=== PATIENT | female | born 1985 ===

== ENCOUNTER 2016-12-14 14:26 | Emergency (ER) | payer OTHER, SELFPAY ==
[2016-12-14 14:43] VITALS: BP 106/73; PULSE 66; RESP 16; TEMP 98; O2SAT 100
[2016-12-14 15:52] LABS: BASO % 0.3 % (0.0-2.0); EOS # 0.1 K/uL (0.0-0.7); EOS % 0.7 % (0.0-4.0); HEMOGLOBIN 12.7 g/dL (12.0-16.0); LYMPH # 2.7 K/uL (1.0-4.3); LYMPH % 25.5 % (20.0-40.0); MEAN CELL VOLUME 81.7 fl (81.0-99.0); MEAN CORPUSCULAR HEMOGLOBIN 26.5 pg (27.0-31.0); MEAN CORPUSCULAR HGB CONC 32.5 g/dL (33.0-37.0); MEAN PLATELET VOLUME 7.6 fl (7.2-11.7); MONO # 0.8 K/uL (0.0-0.8); MONO % 7.9 % (0.0-10.0); NEUT # 6.9 K/uL (1.8-7.0); NEUT % 65.6 % (50.0-75.0); RBC 4.79 Mil/uL (3.80-5.20); RED CELL DISTRIBUTION WIDTH 13.5 % (11.5-14.5); WHITE BLOOD COUNT 10.5 K/uL (4.8-10.8)
--- NOTE | 2016-12-14 15:55 | ED PDOC ---
HPI: Female Pain Time Seen by Provider: 12/14/16 15:05 Chief Complaint (Nursing): Female Genitourinary Chief Complaint (Provider): abdominal pain History Per: Patient History/Exam Limitations: no limitations Onset/Duration Of Symptoms: Hrs (10), Persistent Current Symptoms Are (Timing): Still Present Pain Scale Rating Of: 7 Quality Of Discomfort: Unable To Describe, "Pain" Associated Symptoms: denies: Fever, Chills, Nausea, Vomiting, Diarrhea, Loss Of Appetite, Constipation Alleviating Factors: None Additional History Per: Patient Additional Complaint(s): 31 year old female with abdominal pain since 6:00AM that woke her up, initially 10/10 pain upon awakening. Pain is now 7/10 in severity, she is unable to describe the pain, initially it was RLQ now is suprapubic. She is currently having vaginal bleeding, like menses. Endorses hematuria, no dysuria, urgency, frequency. LMP 11/01/16. Not using contraception or barrier protection. She did home test 3 days ago but it was 'not that positive.' Her youngest child is 7 months old. PMD: Zoe Raphael. Last Menstral Period: 11/01/16 Past Medical History Vital Signs: Last Vital Signs Temp 98.0 F 12/14/16 14:40 Pulse 66 12/14/16 14:40 Resp 16 12/14/16 14:40 BP 106/73 12/14/16 14:40 Pulse Ox 100 12/14/16 14:40 - Family History Family History: States: Unknown Family Hx - Home Medications Home Medications: Ambulatory Orders Medication Instructions Recorded Vit No.126/Iron/Folic 1 tab PO DAILY 05/01/16 [Classic Tablet] Ibuprofen [Motrin Tab] 600 mg PO Q6 PRN #30 tab 05/03/16 - Allergies Allergies/Adverse Reactions: Allergies Allergy/AdvReac Type Severity Reaction Status Date / Time No Known Allergies Allergy Verified 11/27/15 06:33 Review of Systems Constitutional: Negative for: Fever, Chills, Sweats Eyes: Negative for: Pain, Vision Change Cardiovascular: Negative for: Chest Pain, Palpitations Respiratory: Negative for: Cough, Shortness of Breath Gastrointestinal: Positive for: Abdominal Pain (rlq now suprapubic). Negative for: Nausea, Vomiting Genitourinary Female: Positive for: Vaginal Bleeding, Pelvic Pain. Negative for : Dysuria, Frequency Musculoskeletal: Negative for: Back Pain Physical Exam - Reviewed Vital Signs Reviewed: Yes - Physical Exam Appears: Positive for: Uncomfortable Skin: Positive for: Warm, Dry Eye Exam: Positive for: Normal appearance Cardiovascular/Chest: Positive for: Regular Rate, Rhythm. Negative for: Bradycardia, Tachycardia Respiratory: Positive for: Normal Breath Sounds. Negative for: Rales, Rhonchi, Wheezing Gastrointestinal/Abdominal: Positive for: Soft, Tenderness (suprapubic). Negative for: Organomegaly, Distended, Guarding, Rebound Pelvic Exam: Positive for: External Exam Normal, Blood (moderate amount of blood in vaginal vault, +clots, possible POC) Back: Negative for: L CVA Tenderness, R CVA Tenderness Rectal: Positive for: Deferred Extremity: Negative for: Tenderness, Pedal Edema Lymphatic: Positive for: Deferred Neurologic/Psych: Positive for: Alert, vault keeper II-XII, Oriented. Negative for: Motor/Sensory Deficits - Laboratory Results Result Diagrams: 12/14/16 11:20 12/14/16 11:20 Urine POC: Positive - ECG O2 Sat by Pulse Oximetry: 100 - Progress ED Course And Treament: likely spontaneous , rule out ectopic * cbc * cmp * urine preg + * quantitative beta hcg * urine dip * transvaginal u/s Case d/w Dr. Torres CBC WNL CMP WNL pending quantitative hcg, transvaginal u/s 1700: tv u/s FINDINGS: The uterus measures 8.5 x 4.8 x 5.5 cm. There is no uterine mass. The endometrium measures 11 mm in width. There is no intrauterine gestation identified. There is no endometrial fluid. There is an incidental small cervical nabothian cyst. The right ovary measures 2.5 x 1.7 x 3.1 cm and the left ovary measures 2.3 x 1.2 x 2.6 cm. Normal flow is demonstrated in both ovaries. There are no adnexal masses appreciated. IMPRESSION: No intrauterine gestation demonstrated. The possibility of ectopic cannot be excluded on the basis of this examination. Followup with serial beta HCG is advised. . 17:13: quant beta hc will d/w Dr. Torres Disposition - Clinical Impression Clinical Impression: Spontaneous miscarriage - Disposition [facility] Disposition Time: 18:00 Condition: STABLE Additional Instructions: Return to ER for any worse or new symptoms. Followup with OB in 5-7 days for re -evaluation, or return to ER. Instructions: Spontaneous Miscarriage (ED) Forms: [facility] (Hebrew) Print Language: IRISH
[2016-12-14 16:03] LABS: ALB/GLOB RATIO 1.5 (1.0-2.1); ALBUMIN 4.3 g/dL (3.5-5.0); ALT/SGPT 31 U/L (9-52); AST/SGOT 19 U/L (14-36); BLOOD UREA NITROGEN 11 mg/dl (7-17); CALCIUM 8.8 mg/dL (8.4-10.2); GFR AFRICAN-AMERICAN > 60; GFR NON-AFRICAN AMERICAN > 60
--- NOTE | 2016-12-14 16:49 | US ---
PROCEDURE: Pelvic ultrasound HISTORY: pelvic pain, ro ectopic COMPARISON: Not available TECHNIQUE: Transvaginal FINDINGS: The uterus measures 8.5 x 4.8 x 5.5 cm. There is no uterine mass. The endometrium measures 11 mm in width. There is no intrauterine gestation identified. There is no endometrial fluid. There is an incidental small cervical nabothian cyst. The right ovary measures 2.5 x 1.7 x 3.1 cm and the left ovary measures 2.3 x 1.2 x 2.6 cm. Normal flow is demonstrated in both ovaries. There are no adnexal masses appreciated. IMPRESSION: No intrauterine gestation demonstrated. The possibility of ectopic cannot be excluded on the basis of this examination. Followup with serial beta HCG is advised. .
== END 2016-12-14 18:21 | disposition home or self-care (01) ==
LOC: H.ER 14:26
DX: O03.9 Complete or unspecified spontaneous abortion without complication (principal)

== ENCOUNTER 2018-01-27 21:18 | Emergency (ER) | payer SELFPAY ==
[2018-01-27 21:25] VITALS: BP 131/77; PULSE 72; RESP 18; TEMP 97.9; O2SAT 100
--- NOTE | 2018-01-27 21:40 | ED PDOC ---
HPI: Skin/Bite Injury Time Seen by Provider: 01/27/18 21:30 Chief Complaint (Nursing): Abnormal Skin Integrity Chief Complaint (Provider): Abnormal Skin Integrity History Per: Patient History/Exam Limitations: no limitations Onset/Duration Of Symptoms: Days (x 1) Current Symptoms Are (Timing): Still Present Location Of Injury: Right: Hand Quality Of Symptoms: Painful, Itching Additional Complaint(s): 32 year old female presents to the Ed with a rash on the dorsum of her right hand for the last month. Patient attempted to use her daughter's skin medication that she does not know the name of causing the rash to worsen and the skin to crack. Offers no other medical complaints. PMD: none provided Past Medical History Reviewed: Historical Data, Nursing Documentation, Vital Signs Vital Signs: Last Vital Signs Temp 97.9 F 01/27/18 21:22 Pulse 72 01/27/18 21:22 Resp 18 01/27/18 21:22 BP 131/77 01/27/18 21:22 Pulse Ox 100 01/27/18 21:43 - Medical History PMH: No Chronic Diseases - Surgical History Surgical History: No Surg Hx - Family History Family History: States: Unknown Family Hx - Home Medications Home Medications: Ambulatory Orders Medication Instructions Recorded Vit No.126/Iron/Folic 1 tab PO DAILY 05/01/16 [Classic Tablet] Ibuprofen [Motrin Tab] 600 mg PO Q6 PRN #30 tab 05/03/16 Terbinafine HCl [Lamisil At] 0.5 gm TP BID #30 cream..g. 01/27/18 - Allergies Allergies/Adverse Reactions: Allergies Allergy/AdvReac Type Severity Reaction Status Date / Time No Known Allergies Allergy Verified 11/27/15 06:33 Review of Systems ROS Statement: Except As Marked, All Systems Reviewed And Found Negative Skin: Positive for: Rash (to dorsum of right hand) Physical Exam - Reviewed Nursing Documentation Reviewed: Yes Vital Signs Reviewed: Yes - Physical Exam Appears: Positive for: Non-toxic, No Acute Distress Head Exam: Positive for: ATRAUMATIC, NORMAL INSPECTION, NORMOCEPHALIC Skin: Positive for: Dry, Rash (circular region of thickened, hyper pigmented skin approximately 5 cms in diameter; mild cracking of skin noted; no erythma or purulent discharge) Eye Exam: Positive for: EOMI, Normal appearance, PERRL Neck: Positive for: Normal, Painless ROM, Supple Cardiovascular/Chest: Positive for: Regular Rate, Rhythm. Negative for: Murmur Respiratory: Positive for: Normal Breath Sounds. Negative for: Wheezing, Respiratory Distress Gastrointestinal/Abdominal: Positive for: Normal Exam, Soft. Negative for: Tenderness Extremity: Positive for: Normal ROM. Negative for: Deformity Neurologic/Psych: Positive for: Alert, Oriented (x 3). Negative for: Motor/ Sensory Deficits - ECG O2 Sat by Pulse Oximetry: 100 (RA) Pulse Ox Interpretation: Normal Medical Decision Making Medical Decision Makin:40 --Patient will be discharged with anti fungal cream and was advised on proper care. Return precautions provided. Scribe Attestation: Documented by Ana M Crockett, acting as a scribe for Elina Malagno PA-C Provider Scribe Attestation: All medical record entries made by the Scribe were at my direction and personally dictated by me. I have reviewed the chart and agree that the record accurately reflects my personal performance of the history, physical exam, medical decision making, and the department course for this patient. I have also personally directed, reviewed, and agree with the discharge instructions and disposition. Disposition - Clinical Impression Clinical Impression: Tinea corporis - Patient ED Disposition Is Patient to be Admitted: No - Disposition Disposition: Routine/Home Disposition Time: 21:52 Condition: FAIR Prescriptions: Terbinafine HCl [Lamisil At] 0.5 gm TP BID #30 cream..g. Instructions: Ringworm (DC) Print Language: [place]
== END 2018-01-27 22:04 | disposition home or self-care (01) ==
LOC: H.ER 21:18
DX: B35.4 Tinea corporis (principal)

== ENCOUNTER 2018-02-22 17:08 | Emergency (ER) | payer OTHER ==
[2018-02-22 18:46] VITALS: BP 117/70; PULSE 68; RESP 16; TEMP 98; O2SAT 98
--- NOTE | 2018-02-22 19:46 | ED PDOC ---
HPI: Skin/Bite Injury Chief Complaint (Provider): Abnormal Skin Integrity History Per: Student Life Coordinator History/Exam Limitations: language barrier (nigerian) Current Symptoms Are (Timing): Still Present Additional Complaint(s): 33 year old female arrives to ED with a complaint of itchy and burning rash to her right hand for the last 2 months. Patient was given an anti-fungal in ED on 01/27/18 and a secondary anti-fungal at a pharmacy when the first medication did not help. She reports no worsening of symptoms but also has improvemnts after use of both medications. Otherwise, she denies any fever or chills. PMD: none provided <Arleen Valles - Last Filed: 02/22/18 20:01> <Santhosh Waddell - Last Filed: 02/23/18 21:30> Time Seen by Provider: 02/22/18 19:08 Chief Complaint (Nursing): Abnormal Skin Integrity Past Medical History Reviewed: Historical Data, Nursing Documentation, Vital Signs Vital Signs: Last Vital Signs Temp 98.0 F 02/22/18 18:43 Pulse 68 02/22/18 18:43 Resp 16 02/22/18 18:43 BP 117/70 02/22/18 18:43 Pulse Ox 98 02/22/18 18:43 - Medical History PMH: No Chronic Diseases - Family History Family History: States: Unknown Family Hx <Arleen Valles - Last Filed: 02/22/18 20:01> Vital Signs: Last Vital Signs Temp 98.0 F 02/22/18 18:43 Pulse 68 02/22/18 18:43 Resp 16 02/22/18 18:43 BP 117/70 02/22/18 18:43 Pulse Ox 98 02/22/18 20:02 <Santhosh Waddell - Last Filed: 02/23/18 21:30> - Home Medications Home Medications: Ambulatory Orders Medication Instructions Recorded RX: Vit No.126/Iron/Folic 1 tab PO DAILY 05/01/16 [Classic Tablet] RX: Ibuprofen [Motrin Tab] 600 mg PO Q6 PRN #30 tab 05/03/16 Terbinafine HCl [Lamisil At] 0.5 gm TP BID #30 cream..g. 01/27/18 - Allergies Allergies/Adverse Reactions: Allergies Allergy/AdvReac Type Severity Reaction Status Date / Time No Known Allergies Allergy Verified 02/22/18 18:43 Review of Systems ROS Statement: Except As Marked, All Systems Reviewed And Found Negative Constitutional: Negative for: Fever, Chills Skin: Positive for: Rash (right hand itchiness) <HaiGiovanyArleen Deangelo - Last Filed: 02/22/18 20:01> Physical Exam - Reviewed Nursing Documentation Reviewed: Yes Vital Signs Reviewed: Yes - Physical Exam Appears: Positive for: Non-toxic, No Acute Distress Skin: Positive for: Rash (large circular area of peripheral scaling; (-) purulence, (-) induration, or (-) fluctuance) Neurologic/Psych: Positive for: Alert, Oriented. Negative for: Motor/Sensory Deficits <HaiGiovanyArleen Deangelo - Last Filed: 02/22/18 20:01> - ECG O2 Sat by Pulse Oximetry: 98 (RA) Pulse Ox Interpretation: Normal <HaiArleen S - Last Filed: 02/22/18 20:01> Medical Decision Making Medical Decision Making: Time: 1932 Initial Plan: * Benadryl 50mg PO Time: 1945 --Rash is fungal in appearance but not responding to (2) anitfungal treatments. However, there is no evidence of super infection and worsening in symptoms as per patient. Advised to follow up with a inspector final assembly conveyor line. Counseling was provided and all questions were answered regarding diagnosis. There is agreement to discharge plan. Return if symptoms persist or worsen. -------- ScribeAttestation: Documented byVicki Sol, acting as a scribe for Arleen Valles PA-C. Provider ScribeAttestation: All medical record entries made by the Scribe were at my direction and personally dictated by me. I have reviewed the chart and agree that the record accurately reflects my personal performance of the history, physical exam, medical decision making, and the department course for this patient. I have also personally directed, reviewed, and agree with the discharge instructions and disposition. <Arleen Valles - Last Filed: 02/22/18 20:01> Disposition - Patient ED Disposition Is Patient to be Admitted: No Counseled Patient/Family Regarding: Diagnosis, Need For Followup - Disposition Disposition: Routine/Home Disposition Time: 19:42 <Arleen Valles - Last Filed: 02/22/18 20:01> <Santhosh Waddell - Last Filed: 02/23/18 21:30> - Clinical Impression Clinical Impression: Rash and nonspecific skin eruption - Disposition Referrals: [facility] [Outside] Condition: STABLE Instructions: Skin Rash (DC) Forms: [facility] (Yoruba) - PA / KITCHEN FOOD SERVER / Resident Statement MD/DO has reviewed & agrees with the documentation as recorded. <Santhosh Waddell - Last Filed: 02/23/18 21:30>
== END 2018-02-22 19:42 | disposition home or self-care (01) ==
LOC: H.ER 17:08
DX: R21 Rash and other nonspecific skin eruption (principal)